=== PATIENT | male | born 1965 | race Caucasian/White ===

== ENCOUNTER 2019-12-22 10:08 | Outpatient (CLI) | payer OTHER, SELFPAY ==
--- NOTE | 2019-12-22 10:22 | EST_ITS ---
Patient Info Name: Ras Reddy Age: 54 years : 1965 Gender: Male Ht: 71 in Wt: 179 lbs BSA: 2.02 m2 Exam Date: 12/22/2019 10:36 AM Exam Location: [facility] Pulmonary Patient Status: Outpatient Admit Date: 12/22/2019 Staff Ordering Physician: Phi Levine DO Photo Cartographer: Anali Donahue RCS Attending Provider: PHI LEVINE Referring Physician: Oliver SCHWARZ; Exercise Technologist: Arpan Stratton RDCS, RT Exercise Physician: Phi Levine DO Exam Type: CA stress echo Study Info Indications I25.9 - Chronic ischemic heart disease, unspecified Treadmill exercise stress echocardiogram is performed. Summary 1. 1. Negative Berhane exercise stress test for ischemic ST changes by ECG criteria. 2. 2. Good functional capacity, achieving 10 METs of workload. 3. 3. Appropriate HR response to exercise. 4. 4. Appropriate HR recovery at 1 minute post exercise. 5. 5. Negative stress echocardiogram for ischemia by wall motion analysis. 6. 6. Baseline inferior/posterior wall hypokinesis. 7. 7. Patient informed of the above results. Stress Echo Findings Left Ventricle Improved in contractility of LV with systole. Improved in LV endocardial thickening in all wall segments including inferior and posterior wall with systole. Left Ventricle Entire posterior wall is severely hypokinetic. Inferior wall is mildly hypokinetic. EF 40%. Protocol: Berhane Stress ECG Details Stage: REST Duration (min): 2 min : 1 sec Speed (mph): 0.0 Grade (%): 0 HR (bpm): 73 SBP (mmHg): 131 DBP (mmHg): 78 METS: --- Stage: REST Duration (min): 14 min : 45 sec Speed (mph): 0.0 Grade (%): 0 HR (bpm): 76 SBP (mmHg): 131 DBP (mmHg): 78 METS: --- Stage: STAGE 1 Duration (min): 1 min : 0 sec Speed (mph): 1.7 Grade (%): 10 HR (bpm): 97 SBP (mmHg): 131 DBP (mmHg): 78 METS: --- Stage: STAGE 1 Duration (min): 2 min : 0 sec Speed (mph): 1.7 Grade (%): 10 HR (bpm): 101 SBP (mmHg): 131 DBP (mmHg): 78 METS: --- Stage: STAGE 1 Duration (min): 3 min : 0 sec Speed (mph): 1.7 Grade (%): 10 HR (bpm): 111 SBP (mmHg): 150 DBP (mmHg): 85 METS: --- Stage: STAGE 2 Duration (min): 1 min : 0 sec Speed (mph): 2.5 Grade (%): 12 HR (bpm): 119 SBP (mmHg): 150 DBP (mmHg): 85 METS: --- Stage: STAGE 2 Duration (min): 2 min : 0 sec Speed (mph): 2.5 Grade (%): 12 HR (bpm): 124 SBP (mmHg): 175 DBP (mmHg): 87 METS: --- Stage: STAGE 2 Duration (min): 3 min : 0 sec Speed (mph): 2.5 Grade (%): 12 HR (bpm): 122 SBP (mmHg): 175 DBP (mmHg): 87 METS: --- Stage: STAGE 3 Duration (min): 1 min : 0 sec Speed (mph): 3.4 Grade (%): 14 HR (bpm): 132 SBP (mmHg): 185 DBP (mmHg): 99 METS: --- Stage: STAGE 3 Duration (min): 2 min : 0 sec Speed (mph): 3.4 Grade (%): 14 HR (bpm): 131 SBP (mmHg): 185 DBP (mmHg): 99 METS: ---
== END 2019-12-22 10:09 | disposition home or self-care (01) ==
LOC: ANHCARD 10:10
PROVIDERS: PCP Family Medicine; Visit Provider Internal Medicine Cardiovascular Disease
DX: I25.10 Atherosclerotic heart disease of native coronary artery without angina pectoris (principal)
CPT/HCPCS: 93351

== ENCOUNTER 2022-01-14 10:26 | Outpatient (CLI) | payer OTHER, SELFPAY ==
--- NOTE | ~2022-01-14 | XR_ITS ---
EXAMINATION: XR hip BI wo pelvis INDICATION: Bilateral hip pain TECHNIQUE: Two views of each hip are obtained. COMPARISON: None available FINDINGS: Bone alignment is normal. There is no fracture. There is mild osteoarthritis of the hips. T he soft tissues are unremarkable. IMPRESSION: 1. Mild osteoarthritis of the hips. Reviewed, dictated and finalized at location F. OR ANALYST PROGRAMMER
--- NOTE | ~2022-01-14 | XR_ITS ---
EXAMINATION: XR lumbar spine 2-3V DATE: 01/14/2022 10:57 INDICATION: Bilateral hip pain TECHNIQUE: Anteroposterior and lateral views of the lumbar spine, and cone-down lateral view of the l umbosacral junction were obtained. COMPARISON: None. FINDINGS: There is no fracture, dislocation, or subluxation. The vertebral body heights and intervert ebral disc spaces are maintained. Small degenerative osteophytes project from the anterior endplates of multiple vertebral bodies. There is mild facet osteoarthritis of the lower lumbar spine. Calcified atherosclerosis is noted. IMPRESSION: 1. Mild lumbar spondylosis. Reviewed, dictated and finalized at location F. ATOR COATING FURNACE IMPRESSION: 1. Mild lumbar spondylosis.
== END 2022-01-14 10:27 | disposition home or self-care (01) ==
LOC: CHSIMG 10:29
PROVIDERS: PCP Family Medicine; Visit Provider Family Medicine
DX: R09.89 Other specified symptoms and signs involving the circulatory and respiratory systems (principal); M25.551 Pain in right hip; M54.16 Radiculopathy, lumbar region; M25.552 Pain in left hip
CPT/HCPCS: 72100; 73521

== ENCOUNTER 2022-01-16 12:18 | Outpatient (CLI) | payer OTHER, SELFPAY ==
--- NOTE | ~2022-01-16 | US_ITS ---
EXAMINATION: US arterial ankle brachial ind EXAM DATE: 01/16/2022 12:54 INDICATION: Absent pedal pulses. TECHNIQUE: Segmental pressures and plethysmographic and Doppler waveforms of the brachial and lower e xtremity arteries were obtained. There is no prior study for comparison. FINDINGS: Right and left brachial artery pressures of 107 mm Hg and 118 mm Hg, respectively, are concordant (no rmal difference <= 30 mmHg). RIGHT LEG: The ankle-brachial index (MELVA) is 0.71 (normal >= 0.9-1). The great toe pressure of 65 mmHg. The lower extremity ratios, segmental pressure gradients as follows; Dorsalis pedis: 0.53 (62 mmHg). Posterior tibial: 0.71 (84 mmHg). (Normal gradients <= 20-30 mmHg between adjacent levels on the same leg or the same levels on the two legs). Arterial waveforms are monophasic. LEFT LEG: The ankle-brachial index (MELVA) is 0.80 (normal >= 0.9-1). The great toe pressure of 53 mmHg. The lower extremity ratios, segmental pressure gradients as follows; Dorsalis pedis: 0.42 (50 mmHg). Posterior tibial: 0.80 (94 mmHg). (Normal gradients <= 20-30 mmHg between adjacent levels on the same leg or the same levels on the two legs). Arterial waveforms are monophasic PT, absent DP. A duplex D oppler image of the left dorsalis pedis waveform was obtainable with parvus tardus appearance. IMPRESSION: 1. Right ankle-brachial index 0.71, mild to moderately decreased. 2. Left ankle-brachial index 0.80, mildly decreased. 3. Absent left dorsalis pedis waveform. Reviewed, dictated and finalized at location G. SERVICE MANAGER
== END 2022-01-16 12:19 | disposition home or self-care (01) ==
LOC: CHSIMG 12:19
PROVIDERS: PCP Family Medicine; Visit Provider Family Medicine
DX: R09.89 Other specified symptoms and signs involving the circulatory and respiratory systems (principal)
CPT/HCPCS: 93922

== ENCOUNTER 2022-01-21 08:03 | Outpatient (RCR) | payer OTHER, SELFPAY ==
--- NOTE | 2022-01-21 08:57 | PTOPEVAL ---
Thank you for referring Ras Reddy [facility] to [facility] The patient is scheduled to be seen for therapy? ____x/week for ___ weeks. Please review, sign, date and return this plan of care ANGELA. I agree with and certify that the following plan of care is medically necessary. Referring Physician Date Admitting Provider: Attending Provider: Sky Mccain MD Referring Provider: *PT Outpatient Evaluation Start: 01/21/22 07:51 Freq: Status: Active Protocol: Document 01/21/22 07:52 ACR (Rec: 01/21/22 08:56 ACR [id number]) Therapy Assessment Status Assessment Status Assessment Status Evaluation Evaluation Information Problem Diagnosis low back pain with radiculopathy Subjective Information Patient states that he started Query Text:As Reported By Patient/ to have leg pain where his Family legs feel really tight. He states that he got an MELVA which showed mild to moderate blockage. The patient states that he has some back pain, but his R hip is the most pain where it can radiate down the front of the leg into the ankle. He states that he is having significant pain where he is unable to walk more than 5 minutes before resting. Patient states that standing does not bother him, but the steps cause pain. He states getting in and out of the car and squats do not bother him. He states that he only has the most pain when he is walking. He states that he is unable to work at this time due to his pain. The patient's goal is to get back to normal. 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
--- NOTE | 2022-02-01 11:08 | PTOPEVAL ---
Thank you for referring Ras Reddy II to [facility].? The patient is scheduled to be seen for therapy? ____x/week for ___ weeks. Please review, sign, date and return this plan of care ANGELA. I agree with and certify that the following plan of care is medically necessary. Referring Physician Date Admitting Provider: Attending Provider: Sky Mccain MD Referring Provider: *PT Outpatient Evaluation Start: 01/21/22 07:51 Freq: Status: Active Protocol: Document 02/01/22 09:00 [facility] (Rec: 02/01/22 11:07 [facility] [id number]) Therapy Assessment Status Assessment Status Assessment Status Progress Evaluation Information Problem Diagnosis low back pain with radiculopathy Subjective Information patient reports he recently Query Text:As Reported By Patient/ found out that he has poor Family bloof flow in the leg/arterial blockage and reports he is farily certain this is why he waslks with a limp and has bilateral hip pain. he reports he thinks it would be best to hold off of therapy until after he follows up with MD about what to do about his blood flow issues. he reports no radicular symptoms today. Pain Assessment Timing of Pain Assessment Timing of Pain Assessment Assessment Pain Scale Pain Scale Used Numeric (1 - 10) Self Report Pain Assessment Right Hip(s) Reported Pain Level 1 Pain Score Pain Score 1: Self Report Interventions Used Interventions Used By Clinicians Activity or ADL's,Electrical Stimulation,Exercise,Heat Lower Extremity Muscle Strength Testing General Lower Extremity Strength Gross Lower Extremity Strength 5/5 bilateral hip flex 4/5 bilateral hip abd 4/5 bilateral hip ext 5/5 bilateral knee ext/flex 5/5 bilateral ankle DF Muscle Length Testing Muscle Length Testing Left Hamstring Length 20 Query Text:(90 - 90 Position) Right Hamstring Length 20 Query Text:(90 - 90 Position) Palpation Assessment Palpation Palpation atient did not take blood pressure meds this morning. he presnts with 162/85 mmhg, 65 BPM, and 98% spo2. he reports no pain with lumbar or sacral spine PA glides. he does
== END 2022-02-01 23:59 | disposition home or self-care (01) ==
LOC: CHSPT 08:03
PROVIDERS: PCP Family Medicine; Visit Provider Family Medicine
DX: M54.50 Low back pain, unspecified (principal); M54.10 Radiculopathy, site unspecified
CPT/HCPCS: 97014; 97110; 97161; 97530; G0283

== ENCOUNTER 2022-04-30 11:36 | Emergency (ER) | payer OTHER, SELFPAY ==
[2022-04-30 11:40] VITALS: BP 126/77; PULSE 72; RESP 16; TEMP 36.3; O2SAT 100
--- NOTE | 2022-04-30 12:36 | ED.WOUNDLAC ---
HPI - Wound/Laceration General Chief Complaint: Skin/Abscess/Foreign Body Stated Complaint: cut finger oon Left hand Time Seen by Provider: 04/30/22 11:38 Source: patient and RN notes reviewed Mode of arrival: ambulatory Limitations: no limitations History of Present Illness HPI narrative: left index finger laceration 1.8 cm lateral Onset (ago): day(s) (1) Location: other (left hand) Extremity Location: Left: hand Place: home Patient tetanus UTD: Yes Context: accidental Associated symptoms: none Treatments prior to arrival: bandage Related Data Home Medications Medication Instructions Recorded Confirmed amlodipine 10 mg tablet 10 mg PO DAILY 11/15/19 04/30/22 aspirin 81 mg tablet,delayed 81 mg PO DAILY 11/15/19 04/30/22 release (Adult Low Dose Aspirin) esomeprazole magnesium 20 mg 20 mg PO DAILY 11/15/19 04/30/22 capsule,delayed release (Nexium) lisinopril 20 1 tablet PO DAILY 11/15/19 04/30/22 mg-hydrochlorothiazide 12.5 mg tablet metoprolol tartrate 25 mg tablet 25 mg PO BID 11/15/19 04/30/22 nitroglycerin 0.4 mg sublingual 0.4 mg sublingual Q5M PRN Chest 11/15/19 04/30/22 tablet Pain Allergies Allergy/AdvReac Type Severity Reaction Status Date / Time iodine Allergy Mild Hypertensio Verified 04/30/22 13:15 n Review of Systems Review of Systems: All systems reviewed & are unremarkable except as noted in HPI and below Constitutional: Constitutional: Reports no additional constitutional complaints Eyes: Eyes: Reports no additional eye complaints ENT: Reports system reviewed and no additional complaints, except as documented Cardiovascular: Cardiovascular: Reports no additional cardiovascular complaints Respiratory: Respiratory: Reports no additional respiratory complaints Gastrointestinal: Gastrointestinal: Reports no additional gastrointestinal complaints Musculoskeletal: Musculoskeletal: Reports no additional musculoskeletal complaints Integumentary/Breasts: Skin/Breast: Reports system reviewed and no additional complaints, except as docu Neurologic: Reports system reviewed and no additional complaints, except as documented Psychiatric: Psychiatric: Reports no additional psychiatric complaints Endocrine: Endocrine: Reports no additional endocrine complaints Hematologic/Lymphatic: Hematologic/Lymphatic: Reports no additional hematologic/lymphatic complaints Allergic/Immunologic: Allergic/Immunologic: Reports no additional allergic/immunologic complaints [facility] Past Medical History Medical History Arthritis Coronary artery disease Finger laceration History of right common carotid artery stent placement Hyperlipidemia Hypertension Myocardial infarct Family History Family History Mother Diabetes mellitus Grandparent Heart disease Father Diabetes mellitus Valvular heart disease Social History Social History Smoking status: Heavy tobacco smoker Alcohol intake: current Exam Const: General: healthy appearing and no acute distress Nutritional Appearance: well nourished Orientation/consciousness: patient oriented x3 Limitations: no limitations HENMT: Head: normal to inspection Ears: external ears normal, TM's normal bilaterally and EAC's normal General nose exam: Normal external nose present and Normal nares present Face and sinus: normal facial exam and sinuses nontender Mouth: Yes Normal oral and palatal mucosa present and Yes moist mucous membranes Teeth and gingiva: dentition normal Throat: posterior oropharynx normal Eyes: Conjunctivae: conjunctivae normal Pupils: Equal, round and reactive pupils present EOM: EOMs intact bilaterally Neck: Neck: normal visual inspection, no lymphadenopathy and no meningeal signs Chest: Chest palpation & inspection: normal inspection of the chest Resp
[2022-04-30 13:00] VITALS: BP 119/69; PULSE 64; RESP 16; O2SAT 100
== END 2022-04-30 13:00 | disposition home or self-care (01) ==
PROVIDERS: Emergency Provider Emergency Medicine; PCP Family Medicine
DX: S61.412A Laceration without foreign body of left hand, initial encounter (principal); W45.8XXA Other foreign body or object entering through skin, initial encounter
CPT/HCPCS: 99282

== ENCOUNTER 2022-10-15 08:23 | Emergency (ER) | payer OTHER, SELFPAY ==
[2022-10-15] VITALS (37 sets, daily range): BP systolic 98–138; BP diastolic 60–83; PULSE 54–72; RESP 14–29; TEMP 36.5–36.6; O2SAT 94–99
--- NOTE | 2022-10-15 08:43 | ED.GIBLEED ---
HPI - GI Bleed General Chief complaint: Abdominal Pain Stated complaint: BLOOD IN STOOL Time Seen by Provider: 10/15/22 08:43 History of Present Illness HPI Narrative: Pt presents with rectal bleeding this morning. Pt says he felt the urge to move his bowels and he passed pure blood. Pt denies abdominal pain or rectal pain or fever. Pt has not had any recent travel. Pt takes aspirin but is not on any other blood thinners. Pt has not ever had bleeding like this. Related Data Home Medications Medication Instructions Recorded Confirmed amlodipine 10 mg tablet 10 mg PO DAILY 11/15/19 10/15/22 aspirin 81 mg tablet,delayed 81 mg PO DAILY 11/15/19 10/15/22 release (Adult Low Dose Aspirin) esomeprazole magnesium 20 mg 20 mg PO DAILY 11/15/19 10/15/22 capsule,delayed release (Nexium) lisinopril 20 1 tablet PO DAILY 11/15/19 10/15/22 mg-hydrochlorothiazide 12.5 mg tablet metoprolol tartrate 25 mg tablet 25 mg PO BID 11/15/19 10/15/22 nitroglycerin 0.4 mg sublingual 0.4 mg sublingual Q5M PRN Chest 11/15/19 10/15/22 tablet Pain Allergies Allergy/AdvReac Type Severity Reaction Status Date / Time iodine Allergy Mild Hypertensio Verified 10/15/22 08:36 n Review of Systems Review of Systems: All systems reviewed & are unremarkable except as noted in HPI and below Gastrointestinal: Gastrointestinal: Reports as per HPI [facility] Past Medical History Medical History Arthritis Coronary artery disease Finger laceration History of right common carotid artery stent placement Hyperlipidemia Hypertension Myocardial infarct Family History Family History Mother Diabetes mellitus Grandparent Heart disease Father Diabetes mellitus Valvular heart disease Social History Social History (System 10/14/22 @ 15:51 by Courtney Medina) Smoking status: Light tobacco smoker Tobacco type: cigarettes Second hand tobacco smoke exposure: No Alcohol intake: never Substance use: never Lack of Transportation: No Lack of Food: Never True Current Housing: I Have Housing Concerned About Future Housing: No Difficulty Paying Gas/Electric Bills: No Difficulty Paying for Meds: No Currently Unemployed: YES Education: Trade/Vocational Certificate Difficulty w/ Childcare or Family Care: No Spiritual care concerns: No Exam Const: General: healthy appearing Nutritional Appearance: well nourished Orientation/consciousness: patient oriented x3 Limitations: no limitations Resp: Effort & Inspection: normal respiratory effort Auscultation: clear to auscultation bilaterally Cardio: Rate: regular rate Rhythm: regular rhythm GI: GI Palp: Yes Soft to palpation Auscultation: normal bowel sounds Rectal Exam: heme positive stool and No hemorrhoids (no bleeding external hemorrhoids noted) Back/Spine/Pelvis: Back: no CVA tenderness Skin: General skin exam: normal color Rashes: no rashes Neuro: General: patient oriented x3 Cranial nerves: Yes Nystagmus not present Speech: normal speech Extrem: General: normal to inspection and no clubbing, cyanosis or edema Psych: Mental Status: mental status grossly normal Affect: normal affect Attitude: cooperative Course Course Emergency Course: called [facility], no gi 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 discussed with dr streeter at [phone], will accept consult, calling hospitalist, dr conrad now. dr conrad agrees to accept pt [phone]. will call ambulance. Vital Signs Vital signs: Vital Signs Temperature 97.7 F 10/15/22 08:25 Pulse Rate 70
[2022-10-15 09:05] LABS: Basophils Absolute Auto 0.05 K/mm3 (0.00-0.10); Basophils Percent Auto 0.7 % (0.0-1.0); Eosinophils Absolute Auto 0.39 K/mm3 (0.02-0.50); Eosinophils Percent Auto 5.5 % (1.0-6.0); Hematocrit 42.7 % (40.0-54.0); Hemoglobin 15.3 g/dL (14.0-18.0); Immature Granulocyte Absolute 0.03 K/mm3 (0.00-0.00); Immature Granulocyte Percent A 0.4 % (0.0-0.0); Lymphocytes Absolute Auto 1.53 K/mm3 (1.10-4.50); Lymphocytes Percent Auto 21.7 % (18.0-42.0); Mean Corpuscular HGB Conc 35.8 g/dL (32.0-36.0); Mean Corpuscular Hemoglobin 31.5 pg (27.0-31.0); Mean Platelet Volume 9.5 fl (8.7-11.0); Monocytes Absolute Auto 0.73 K/mm3 (0.10-0.90); Monocytes Percent Auto 10.4 % (2.0-11.0); Neutrophils Absolute Auto 4.3 K/mm3 (1.7-7.2); Neutrophils Percent Auto 61.3 % (50.0-70.0); Platelet Count Result 316 K/mm3 (150-420); Red Blood Count 4.85 M/mm3 (4.70-6.10); Red Cell Distribution Width 12.3 % (11.6-14.4)
[2022-10-15 09:20] LABS: Partial Thromboplastin Time 29.1 SEC (23.90-30.70); Prothrombin Time 10.9 Seconds (9.50-12.10)
[2022-10-15 09:30] LABS: Alanine Aminotransferase 46 U/L (16-63); Albumin Level 3.7 g/dL (3.4-5.0); Alkaline Phosphatase 65 U/L (46-116); Anion Gap 12 mmol/L (8-16); Aspartate Amino Transferase 27 U/L (15-37); Bilirubin,Total 0.4 mg/dL (0.00-1.00); Blood Urea Nitrogen 14 mg/dL (7-18); Calcium 8.6 mg/dL (8.5-10.1); Carbon Dioxide 24 mmol/L (21-32); Chloride 103 mmol/L (98-108); Estimated CRCL calculation 64 ml/min; Estimated Glomerular Filt Rate > 60; Glucose 117 mg/dL (70-99); Osmolality Calculated 289 mOsm/kg (285-295); Sodium 139 mmol/L (136-145); Total Protein 6.8 g/dL (6.4-8.2)
--- NOTE | 2022-10-15 09:51 | PC.NURSE ---
PT UPDATED ON STATUS, NAD NOTED. VSS PER MONITOR. PT IS WATCHING TV AT THIS TIME WITHOUT DISTRESS. PT DENIES ANY NEEDS OR COMPLAINTS. PT CELL PHONE PROVIDED. WILL CONTINUE TO MONITOR.
--- NOTE | 2022-10-15 10:24 | PC.NURSE ---
SPOKE WITH DAUGHTER, SHE IS UPDATED, ERP HAS SPOKEN WITH PT AND HE IS AWARE OF PLAN OF CARE.
--- NOTE | 2022-10-15 10:46 | PC.NURSE ---
PT AND DAUGHTER UPDATED AT THIS TIME.
--- NOTE | 2022-10-15 11:43 | PC.NURSE ---
AWAITING COVID RESULTS FOR BED PLACEMENT AT [facility].
[2022-10-15 12:11] LABS: SARS-CoV-2 Ag Negative (Negative)
== END 2022-10-15 13:02 | disposition short-term general hospital (02) ==
PROVIDERS: Emergency Provider Emergency Medicine; PCP Family Medicine
DX: K92.2 Gastrointestinal hemorrhage, unspecified (principal)
CPT/HCPCS: 36415; 80053; 85025; 85610; 85730; 86850; 86900; 86901; 87426; 99285; C9803

== ENCOUNTER 2022-10-15 13:42 | Observation (INO) | payer OTHER, SELFPAY ==
--- NOTE | 2022-10-15 13:49 | ADMGEN ---
This patient, Ras Reddy II, was admitted to 3 Med Surg Room 325-02 at 1345. Patient/family oriented to hospital policies and general routines including ID bracelet, bed and alarms, visiting hours, pain management, procedures, bathroom and other care routines, personal items, smoking policy, room service/diet, and visiting hours. Information on how to activate the Rapid Response Team has been discussed. Patient/Family are encouraged to report perceived risks to care and to ask questions if they do not understand what they are told or what they should do.
[2022-10-15 13:55] VITALS: BMI 25.3
[2022-10-15 14:00] VITALS: BP 119/72; PULSE 57; RESP 16; TEMP 36.6; O2SAT 96
--- NOTE | 2022-10-15 14:00 | PM.IMHP ---
[facility] Past Medical History Medical History Arthritis Coronary artery disease Finger laceration History of right common carotid artery stent placement Hyperlipidemia Hypertension Myocardial infarct Family History Family History Mother Diabetes mellitus Grandparent Heart disease Father Diabetes mellitus Valvular heart disease Social History Social History Smoking status: Light tobacco smoker Tobacco type: cigarettes Second hand tobacco smoke exposure: No Alcohol intake: never Substance use: never Lack of Transportation: No Lack of Food: Never True Current Housing: I Have Housing Concerned About Future Housing: No Difficulty Paying Gas/Electric Bills: No Difficulty Paying for Meds: No Currently Unemployed: YES Education: Trade/Vocational Certificate Difficulty w/ Childcare or Family Care: No Spiritual care concerns: No Meds Home Medications and Allergies Home Medications Medication Instructions Recorded Confirmed Type amlodipine 10 mg tablet 10 mg PO DAILY 11/15/19 10/15/22 History aspirin 81 mg tablet,delayed 81 mg PO DAILY 11/15/19 10/15/22 History release (Adult Low Dose Aspirin) atorvastatin 40 mg tablet 40 mg PO DAILY #30 tabs 11/15/19 10/15/22 Rx esomeprazole magnesium 20 mg 20 mg PO DAILY 11/15/19 10/15/22 History capsule,delayed release (Nexium) lisinopril 20 1 tablet PO DAILY 11/15/19 10/15/22 History mg-hydrochlorothiazide 12.5 mg tablet metoprolol tartrate 25 mg tablet 25 mg PO BID 11/15/19 10/15/22 History nitroglycerin 0.4 mg sublingual 0.4 mg sublingual Q5M PRN Chest 11/15/19 10/15/22 History tablet Pain Allergies Allergy/AdvReac Type Severity Reaction Status Date / Time iodine Allergy Mild Hypertensio Verified 10/15/22 08:36 n
[2022-10-15 15:21] LABS: Hematocrit 41.6 % (42.0-52.0); Hemoglobin 14.9 g/dL (14.0-18.0)
--- NOTE | 2022-10-15 16:18 | WPDGICN ---
Assessment and Plan Assessment and plan (1) Acute lower gastrointestinal bleeding: Code(s): K92.2 - Gastrointestinal hemorrhage, unspecified Status: Acute Assessment and Plan: Hematochezia etiology to be determined. I suspect either diverticular bleed or perhaps hemorrhoidal bleed but this was quite a large amount of blood at for hemorrhoids. I discussed colonoscopy with him including the prep and the risks, such as bleeding, perforation, or rarely the need for surgery. Blood counts will be monitored and if necessary he will be transfused but at this point I doubt that that will be necessary. (2) Coronary artery disease: Code(s): I25.10 - Atherosclerotic heart disease of [place] coronary artery without angina pectoris Status: Acute Assessment and Plan: Because of his history of heart disease and stents he does take aspirin once daily. I told that we will need to hold this at least for couple of days until we are certain that his bleeding is resolved. GI Consult Note Consult date/time: 10/15/22 16:18 HPI: Ras Reddy II is a 57 year old male who this morning past large amount of blood per rectum. He thought he was having normal bowel movement but when he turned around he saw large amount of blood filling the toilet. The blood was relatively bright red. He then went to his local emergency room and was transferred here. He has had no abdominal pain. He denies being dizzy, lightheaded or otherwise symptomatic. He has not had a bowel movement since this morning. He suspects he has hemorrhoids because occasionally he would see a scant bit of blood on toilet paper after a bowel movement. He has never had a colonoscopy. There is no family history of colon cancer or other colon diseases. He has had a good appetite. He denies nausea, heartburn, indigestion, weight loss, anorexia, or any other change in bowel habits prior to this. He does take 1 aspirin tablet daily because he has had stents placed when he had a myocardial infarction about 13 years ago. Review of Systems Review of Systems: All systems reviewed & are unremarkable except as noted in HPI and below [facility] Past Medical History Medical History Arthritis Coronary artery disease Finger laceration History of right common carotid artery stent placement Hyperlipidemia Hypertension Myocardial infarct Family History Family History Mother Diabetes mellitus Grandparent Heart disease Father Diabetes mellitus Valvular heart disease Social History Social History Smoking status: Light tobacco smoker Tobacco type: cigarettes Second hand tobacco smoke exposure: No Alcohol intake: never Substance use: never Lack of Transportation: No Lack of Food: Never True Current Housing: I Have Housing Concerned About Future Housing: No Difficulty Paying Gas/Electric Bills: No Difficulty Paying for Meds: No Currently Unemployed: YES Education: Trade/Vocational Certificate Difficulty w/ Childcare or Family Care: No Spiritual care concerns: No Meds Home Medications and Allergies Home Medications Medication Instructions Recorded Confirmed Type amlodipine 10 mg tablet 10 mg PO DAILY 11/15/19 10/15/22 History aspirin 81 mg tablet,delayed 81 mg PO DAILY 11/15/19 10/15/22 History release (Adult Low Dose Aspirin) atorvastatin 40 mg tablet 40 mg PO DAILY #30 tabs 11/15/19 10/15/22 Rx esomeprazole magnesium 20 mg 20 mg PO DAILY 11/15/19 10/15/22 History capsule,delayed release (Nexium) lisinopril 20 1 tablet PO DAILY 11/15/19 10/15/22 History mg-hydrochlorothiazide 12.5 mg tablet metoprolol tartrate 25 mg tablet 25 mg PO BID 11/15/19 10/15/22 History nitroglycerin 0.4 mg sublingual 0.4 mg sublingual Q5M PRN Chest 11/15/19 10/15/22 History ta
[2022-10-15] MEDS: PEG (High)/E-LYTE SOLN 4,000 ML BTL 4000 ML PO (16:48)
--- NOTE | 2022-10-15 23:57 | P.PNCROSS_ITS ---
Event Note Event Note Event Note: The patient was admitted to the [facility] floor in transfer from [facility] [place] for further evaluation of rectal bleeding. He was seen in consultation by Dr. Streeter, GI, and bowel prep was started for colonoscopy tomorrow. I received a phone call from the patient's nurse at about 18:00 and at that time she reported that the patient had left against medical advice as he was not given ice chips and his toilet was not cleaned in a timely fashion. I did not see the patient during his stay and was not notified that he was intending to leave [facility] until after he left.
== END 2022-10-15 18:55 | disposition left against medical advice (07) ==
PROVIDERS: Physician Assistant; Admitting Provider Internal Medicine; PCP Family Medicine; Visit Provider Internal Medicine
DX: K92.2 Gastrointestinal hemorrhage, unspecified (principal); I25.10 Atherosclerotic heart disease of native coronary artery without angina pectoris; E78.5 Hyperlipidemia, unspecified; I10 Essential (primary) hypertension; I25.2 Old myocardial infarction; Z82.49 Family history of ischemic heart disease and other diseases of the circulatory system; F17.210 Nicotine dependence, cigarettes, uncomplicated; Z79.82 Long term (current) use of aspirin; Z79.899 Other long term (current) drug therapy; Z53.21 Procedure and treatment not carried out due to patient leaving prior to being seen by health care provider
CPT/HCPCS: 36415; 85014; 85018; A9270; G0378; G0379

== ENCOUNTER 2022-11-04 13:20 | Outpatient (CLI) | payer OTHER, SELFPAY ==
--- NOTE | 2022-11-04 14:16 | ECHO_ITS ---
Patient Info Name: Ras Reddy Age: 57 years : 1965 Gender: Male Ht: 71 in Wt: 180 lbs BSA: 2.03 m2 BP: 113 / 76 mmHg Technical Quality: Good Exam Date: 11/04/2022 2:15 PM Exam Location: [facility] Patient Status: Outpatient Admit Date: 11/04/2022 Staff Ordering Physician: Sky Mccain MD Staff Educator: Arpan Stratton RDCS, RT Attending Provider: Sky Mccain MD Referring Physician: Adán KIM; Exam Type: CA echo doppler color flow Study Info Indications I50.9 - Heart failure, unspecified Complete two-dimensional, color flow and Doppler transthoracic echocardiogram is performed. Strain analysis performed. Summary 1. Complete two-dimensional, color flow and Doppler transthoracic echocardiogram is performed. 2. Left ventricular chamber dimension is normal. 3. Proximal to mid posterior wall is severely hypokinetic to akinetic. 4. Left ventricular systolic function is preserved, estimated at 50-55%. 5. The left ventricular diastolic function is normal. 6. E/e' 7 is not elevated. 7. Global longitudinal strain is normal at -18.6%. 8. There is mild aortic valve sclerosis. 9. There is trace aortic valve regurgitation. 10. There is mild to moderate mitral valve regurgitation. 11. Dilated inferior vena cava with >50% collapse upon inspiration consistent with elevated right atrial pressure, 10 mmHg. Left Ventricle E/e' 7 is not elevated. Global longitudinal strain is normal at -18.6%. Proximal to mid posterior wall is severely hypokinetic to akinetic. Left ventricular chamber dimension is normal. Left ventricular systolic function is preserved, estimated at 50-55%. The left ventricular diastolic function is normal. Right Ventricle Right ventricular systolic function is normal and with normal TAPSE 2.0 cm. Right ventricular chamber dimension is normal. Left Atria Left atrial chamber dimension is normal. Right Atria Right atrial chamber dimension is normal. Aortic Valve The aortic valve is trileaflet. There is mild aortic valve sclerosis. There is no aortic valve stenosis. There is trace aortic valve regurgitation. Pulmonic Valve There is no pulmonic regurgitation. Mitral Valve There is no mitral valve stenosis. There is mild to moderate mitral valve regurgitation. Tricuspid Valve There is no tricuspid valve regurgitation. Pericardium/Pleural There is no pericardial effusion. Inferior Vena Cava Dilated inferior vena cava with >50% collapse upon inspiration consistent with elevated right atrial pressure, 10 mmHg. Aorta The aortic root size at the sinus of Valsalva is normal. Left Ventricular Outflow Tract Name Value Normal LVOT Doppler LVOT Peak Velocity 103 cm/s LVOT Peak Gradient 4 mmHg LVOT Mean Gradient 2 mmHg LVOT VTI 20 cm LVOT VTI/AV VTI Ratio 0.8 Mitral Valve Name Value Normal MV Doppler
== END 2022-11-04 13:21 | disposition home or self-care (01) ==
LOC: CHSIMG 13:22
PROVIDERS: PCP Family Medicine; Visit Provider Family Medicine
DX: I25.3 Aneurysm of heart (principal)
CPT/HCPCS: 93306

== ENCOUNTER 2022-11-27 01:17 | Day surgery (SDC) | payer OTHER, SELFPAY ==
[2022-11-05 12:10] VITALS: BMI 25.9
--- NOTE | 2022-11-26 13:02 | PM.HPGS ---
History of Present Illness History of Present Illness Consent: Risks, benefits, and alternatives have been discussed and questions answered. Patient agrees to proceed with procedure. Chief complaint: Rectal bleeding Narrative: Ras Reddy II is a 57 year old male Referred for colon cancer screening this is his 1st colonoscopy. He had recently been hospitalized because of rectal bleeding which subsided after 1 day. Review of Systems Review of Systems: All systems reviewed & are unremarkable except as noted in HPI and below PMFSH Past Medical History Medical History Arthritis Coronary artery disease Finger laceration History of right common carotid artery stent placement Hyperlipidemia Hypertension Myocardial infarct Family History Family History Mother Diabetes mellitus Grandparent Heart disease Father Diabetes mellitus Valvular heart disease Social History Social History Smoking packs per day: 1 Smoking cigarettes per day: 20.0 Years smoked: 40 Smoking pack-years: 40.00 Smoking status: Current some day smoker Tobacco type: cigarettes Second hand tobacco smoke exposure: No Alcohol intake: never Substance use: current Substance use type: marijuana Lack of Transportation: No Lack of Food: Never True Current Housing: I Have Housing Concerned About Future Housing: No Difficulty Paying Gas/Electric Bills: No Difficulty Paying for Meds: No Currently Unemployed: YES Education: Trade/Vocational Certificate Difficulty w/ Childcare or Family Care: No Living arrangements: with family Spiritual care concerns: No Meds Home Medications and Allergies Home Medications Medication Instructions Recorded Confirmed Type amlodipine 10 mg tablet 10 mg PO DAILY 11/15/19 11/21/22 History aspirin 81 mg tablet,delayed 81 mg PO DAILY 11/15/19 11/21/22 History release (Adult Low Dose Aspirin) atorvastatin 40 mg tablet 40 mg PO DAILY #30 tabs 11/15/19 11/21/22 Rx esomeprazole magnesium 20 mg 20 mg PO DAILY 11/15/19 11/21/22 History capsule,delayed release (Nexium) lisinopril 20 1 tablet PO DAILY 11/15/19 11/21/22 History mg-hydrochlorothiazide 12.5 mg tablet metoprolol tartrate 25 mg tablet 25 mg PO BID 11/15/19 11/21/22 History nitroglycerin 0.4 mg sublingual 0.4 mg sublingual Q5M PRN Chest 11/15/19 11/21/22 History tablet Pain Allergies Allergy/AdvReac Type Severity Reaction Status Date / Time iodine Allergy Mild Hypertensio Verified 11/05/22 12:09 n Exam Resp: Auscultation: clear to auscultation bilaterally Cardio: Rate: regular rate Rhythm: regular rhythm GI: GI Palp: Yes Soft to palpation and No Tenderness to palpation present (GI) Assessment and Plan Assessment and plan (1) Blood in stool: Code(s): K92.1 - Melena Status: Acute Assessment and Plan: Colonoscopy with possible biopsy or polypectomy or cautery or injection of substances.
[2022-11-27 07:40] VITALS: BP 109/69; PULSE 58; RESP 18; TEMP 36.2; O2SAT 98; BMI 25.9
[2022-11-27] MEDS: LACTATED RINGERS 1,000 ML 150 ML IV CONT (08:03)
--- NOTE | 2022-11-27 08:57 | WPDANESEPPF ---
Anes - Initial Pre Proc Eval Procedure: Operation Date: 11/27/22 09:00 Proposed Procedures p Colonoscopy - Marko Streeter MD Date/Time: 11/27/22 08:57 Surgeon: Marko Streeter MD Pre Op Diagnosis: Rectal bleeding Patient Data Age: 57 Gender: M Height: 1.78 m Weight: 82.2 kg Last Vital Signs Temp 97.1 F L 11/27/22 07:40 Pulse 58 L 11/27/22 07:40 Resp 18 11/27/22 07:40 BP 109/69 11/27/22 07:40 Pulse Ox 98 11/27/22 07:40 O2 Del Method Room Air 11/27/22 07:40 Allergies Allergy/AdvReac Type Severity Reaction Status Date / Time iodine Allergy Mild Hypertensio Verified 11/05/22 12:09 n Home Medications Medication Instructions Recorded Confirmed Type amlodipine 10 mg tablet 10 mg PO DAILY 11/15/19 11/21/22 History aspirin 81 mg tablet,delayed 81 mg PO DAILY 11/15/19 11/21/22 History release (Adult Low Dose Aspirin) atorvastatin 40 mg tablet 40 mg PO DAILY #30 tabs 11/15/19 11/21/22 Rx esomeprazole magnesium 20 mg 20 mg PO DAILY 11/15/19 11/21/22 History capsule,delayed release (Nexium) lisinopril 20 1 tablet PO DAILY 11/15/19 11/21/22 History mg-hydrochlorothiazide 12.5 mg tablet metoprolol tartrate 25 mg tablet 25 mg PO BID 11/15/19 11/21/22 History nitroglycerin 0.4 mg sublingual 0.4 mg sublingual Q5M PRN Chest 11/15/19 11/21/22 History tablet Pain Patient hx anesthesia problems: none Family hx anesthesia problems: none Results Review: All pre-operative results and documents have been reviewed as part of the pre-operative evaluation. [facility] Past Medical History Medical History Arthritis Coronary artery disease Finger laceration History of right common carotid artery stent placement Hyperlipidemia Hypertension Myocardial infarct Family History Family History Mother Diabetes mellitus Grandparent Heart disease Father Diabetes mellitus Valvular heart disease Social History Social History Smoking packs per day: 1 Smoking cigarettes per day: 20.0 Years smoked: 40 Smoking pack-years: 40.00 Smoking status: Current some day smoker Tobacco type: cigarettes Second hand tobacco smoke exposure: No Alcohol intake: never Substance use: current Substance use type: marijuana Lack of Transportation: No Lack of Food: Never True Current Housing: I Have Housing Concerned About Future Housing: No Difficulty Paying Gas/Electric Bills: No Difficulty Paying for Meds: No Currently Unemployed: YES Education: Trade/Vocational Certificate Difficulty w/ Childcare or Family Care: No Living arrangements: with family Spiritual care concerns: No Anes - Eval Final PreProcedure Day of Procedure 11/27/22 08:57 Patient weight: normal Heart: regular rate and rhythm Lungs: clear to auscultation Airway: Mallampati scale class II Neurological: alert and oriented Last oral intake: >/= 8 hours ASA classification: III Emergent: no Anesthetic plan: proceed Anesthesia type and monitoring: general GIVS and standard monitoring Results Review: All pre-operative results and documents have been reviewed as part of the pre-operative evaluation. Informed Consent: The patient's anesthetic plan and its attendant risks and benefits were discussed with the patient/family/POA. Questions were solicited and answers provided to the satisfaction of the patient/family/POA.
[2022-11-27 09:22] VITALS: BP 85/48; PULSE 71; RESP 22; O2SAT 95
[2022-11-27 09:32] VITALS: BP 95/61; PULSE 60; RESP 24; O2SAT 95
[2022-11-27 09:42] VITALS: BP 109/71; PULSE 63; RESP 21; O2SAT 99
== END 2022-11-27 09:47 | disposition home or self-care (01) ==
PROVIDERS: PCP Family Medicine; Visit Provider Internal Medicine Gastroenterology
PROC: 0DJD8ZZ Inspection of Lower Intestinal Tract, Via Natural or Artificial Opening Endoscopic (ICD-10-PCS; CPT 45378; principal; 2022-11-27 09:00)
DX: K62.5 Hemorrhage of anus and rectum (principal); K64.8 Other hemorrhoids; K62.1 Rectal polyp; K57.30 Diverticulosis of large intestine without perforation or abscess without bleeding; I25.10 Atherosclerotic heart disease of native coronary artery without angina pectoris; I10 Essential (primary) hypertension; E78.5 Hyperlipidemia, unspecified; I25.2 Old myocardial infarction; Z79.82 Long term (current) use of aspirin; F17.210 Nicotine dependence, cigarettes, uncomplicated; F12.90 Cannabis use, unspecified, uncomplicated
CPT/HCPCS: 45380; 88305; J2704; J7120

== ENCOUNTER 2023-12-08 08:53 | Outpatient (CLI) | payer OTHER, SELFPAY ==
--- NOTE | ~2023-12-08 | CT_ITS ---
CT Scan of the Chest without Contrast: Clinical Indication: Pulmonary nodule Technique: Contiguous sections were acquired throughout the chest without intravenous contrast. Dose reduction technique was used on this scan by utilizing automated exposure control and iterative recon struction technique. The dose-length product (DLP) was 145.60 mGy-cm. COMPARISON: 10/13/2017 Findings: There is no evidence of any significant mediastinal, hilar or axillary lymphadenopathy. Extensive cor onary artery calcifications are present. There is no evidence of pleural or pericardial effusion. Calcified granulomas are present in the right middle lobe. There is a 7.5 mm noncalcified nodule in t he left lower lobe (axial image 80), unchanged. There is minimal chronic interstitial change or emphy sematous change in the upper lobes. Images through the upper abdomen reveal calcified splenic granulomas. Impression: Stable 7.5 mm noncalcified left lower lobe pulmonary nodule. Stability since 2016 is indicative of be nignity. Minimal chronic interstitial and/or emphysematous change in the upper lobes. Reviewed, dictated and finalized at [facility]. 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 Stability since is indicative of benignity. Minimal chronic interstitial and/or emphysematous change in the upper lobes.
== END 2023-12-08 08:54 | disposition home or self-care (01) ==
LOC: CHSIMG 08:54
PROVIDERS: PCP Family Medicine; Visit Provider Family Medicine
DX: R91.1 Solitary pulmonary nodule (principal); R91.8 Other nonspecific abnormal finding of lung field
CPT/HCPCS: 71250

== ENCOUNTER 2025-09-16 19:34 | Emergency (ER) | payer OTHER, SELFPAY ==
--- NOTE | ~2025-09-16 | CT_ITS ---
CT diagnostic chest wo con HISTORY:Rule out abscess or fluid collection. PUS FROM SUTURE SITE. COMPARISON: 1024. TECHNIQUE: Axial images of the chest were obtained without infusion of intravenous contrast. Dose optimization technique was utilized. FINDINGS: The examination demonstrates no pulmonary nodules, infiltrates and/or effusions. Subsegmental atelectasis are present at the lung bases. There are calcified granulomas within the right middle lobe. Cardiac size and mediastinal configuration are normal in appearance. No hilar or mediastinal lymphadenopathy is seen. The thoracic aorta is normal in caliber. Osseous structures are intact. IMPRESSION: Subsegmental atelectasis at the lung bases are new. There are calcified granuloma in the right middle lobe. All CT scans at this facility are performed using low dose modulation techniques as appropriate to perform exam including the following: automated exposure control; use of iterative reconstruction technique; adjustment of the mA and/or kV according to patient size (this includes techniques or standardized protocols for targeted exams where dose is matched to indication/reason for exam). Reviewed, dictated and finalized at location S. IMPRESSION: Subsegmental atelectasis at the lung bases are new. There are calcified granuloma in the right middle lobe. All CT scans at this facility are performed using low dose modulation techniqu es as appropriate to perform exam including the following: automated exposure c ontrol; use of iterative reconstruction technique; adjustment of the mA and/or kV according to patient size (this includes techniques or standardized protocol s for targeted exams where dose is matched to indication/reason for exam).
[2025-09-16 19:39] VITALS: BP 138/69; PULSE 81; RESP 20; TEMP 36.9; O2SAT 97
--- NOTE | 2025-09-16 19:46 | ED.GENADULT ---
HPI - General Adult General Chief complaint: Skin/Abscess/Foreign Body Stated complaint: WOUND CHECK Time Seen by Provider: 09/16/25 19:46 Source: patient Mode of arrival: ambulatory Limitations: no limitations History of Present Illness HPI narrative: 60 years old white male came to the ED with his from home by private car complaining of pus like discharge coming out of the chest surgical wound prior to arrival to the emergency room. Patient denies any fever, chills, nausea, vomiting, chest pain back pain or shortness of breath. Patient is status post CABG August 29 at [facility]. History of hypertension, hyperlipidemia, COPD, CABG. Related Data Home Medications ?Medication ?Instructions ?Recorded ?Confirmed ?Last Taken ?Type amlodipine 10 mg tablet 10 mg PO DAILY 11/15/19 11/21/22 Unknown History aspirin 81 mg tablet,delayed 81 mg PO DAILY 11/15/19 11/21/22 Unknown History release (Adult Low Dose Aspirin) esomeprazole magnesium 20 mg 20 mg PO DAILY 11/15/19 11/21/22 Unknown History capsule,delayed release (Nexium) lisinopril 20 1 tablet PO DAILY 11/15/19 11/21/22 Unknown History mg-hydrochlorothiazide 12.5 mg tablet metoprolol tartrate 25 mg tablet 25 mg PO BID 11/15/19 11/21/22 Unknown History nitroglycerin 0.4 mg sublingual 0.4 mg sublingual Q5M PRN Chest 11/15/19 11/21/22 Unknown History tablet Pain Allergies Allergy/AdvReac Type Severity Reaction Status Date / Time iodine Allergy Mild Hypertensio Verified 09/16/25 20:26 n Review of Systems Review of Systems: All systems reviewed & are unremarkable except as noted in HPI and below PMFSH Past Medical History Medical History Finger laceration Arthritis Myocardial infarct History of right common carotid artery stent placement Hypertension Hyperlipidemia Coronary artery disease Family History Family History Mother Diabetes mellitus Grandparent Heart disease Father Diabetes mellitus Valvular heart disease Social History Social History Smoking packs per day: 1 Smoking cigarettes per day: 20.0 Years smoked: 40 Smoking pack-years: 40.00 Smoking status: Current some day smoker Tobacco type: cigarettes Second hand tobacco smoke exposure: No Alcohol intake: never Substance use: current Substance use type: marijuana Lack of Transportation: No Lack of Food: Never True Current Housing: I Have Housing Concerned About Future Housing: No Difficulty Paying Gas/Electric Bills: No Difficulty Paying for Meds: No Currently Unemployed: YES Education: Trade/Vocational Certificate Difficulty w/ Childcare or Family Care: No Living arrangements: with family Spiritual care concerns: No Exam Narrative: GENERAL APPEARANCE: WELL-DEVELOPED, WELL-NOURISHED SKIN: NORMAL COLOR HEAD: NORMOCEPHALIC, NONTRAUMATIC EYES: CLEAR CONJUNCTIVA ENT: OROPHARYNX NORMAL, EARS NORMAL, NOSE NORMAL NECK: SUPPLE, NONTENDER CHEST AND RESPIRATORY: AIRWAY PATENT, NO RESPIRATORY DISTRESS, NO ACCESSORY MUSCLE USE, MIDLINE SURGICAL SCAR, ALONG THE STERNUM WITH HAS CM ERYTHEMA BILATERALLY, PURULENT DISCHARGE LEAKING OUT OF THE MIDDLE OF THE SCAR, MORE WITH SQUEEZING. NO LOCALIZED TENDERNESS HEART: REGULAR RATE/RHYTHM ABDOMEN: SOFT, NONTENDER, NO ORGANOMEGALY, QUIET BOWEL SOUNDS MUSCULOSKELETAL: NORMAL RANGE OF MOTION, NONTENDER BACK NEUROLOGIC: ALERT AND ORIENTED ?3, PSYCHOMETRIST IS NORMAL TESTED, NO GROSS MOTOR DEFICIT Course Consultations Consultation #1: DR GAY, THORACIC SURGEON AT [facility] WHO REQUESTED CT CHEST WITHOUT CONTRAST TO RULE OUT THE POSSIBILITY OF FLUID COLLECTION. Date: 09/16/25 Time: 20:28 Vital Signs Vital signs: Vital Signs Temperature 36.9 C 09/16/25 19:39 Pulse Rate 81 09/16/25 19:39 Respiratory Rate 20 09/16/25 19:39 Blood Pressure 138/69 09/16/25 19:39 Pulse Oximetry 97 09/16/25 19:39 Oxygen Delivery Room Air 09/16/25 19:39 Temperature 36.9 C 09/16/25 19:39 Pulse Rate 81 09/16/25 19:39 Respiratory Rate 20 09/16/25 19:39 Blood Pressure 138/69 09/16/25 19:39 Pulse Oximetry 97 09/16/25 19:39 Oxygen Delivery Room Air 09/16/25 19:39 Medical Decision Making MDM Narrative Medical decision making narrative: DIFFERENTIAL DIAGNOSIS INCLUDE POSTOP WOUND INFECTION BLOOD WORKUP TODAY INCLUDES CBC, CMP, BLOOD CULTURE, WOUND CULTURE SHOWED CT CHEST WITHOUT CONTRAST SHOWED Differential Diagnosis Differential Diagnosis: ABOVE Vital Signs Vital Signs: Vital Signs Temperature 36.9 C 09/16/25 19:39 Pulse Rate 81 09/16/25 19:39 Respiratory Rate 20 09/16/25 19:39 Blood Pressure 138/69 09/16/25 19:39 Pulse Oximetry 97 09/16/25 19:39 Oxygen Delivery Room Air 09/16/25 19:39 Temperature 36.9 C 09/16/25 19:39 Pulse Rate 81 09/16/25 19:39 Respiratory Rate 20 09/16/25 19:39 Blood Pressure 138/69 09/16/25 19:39 Pulse Oximetry 97 09/16/25 19:39 Oxygen Delivery Room Air 09/16/25 19:39 Lab Data 09/16/25 20:15 09/16/25 20:15 Labs: Lab Results 09/16/25 Range/Units 20:15 WBC 7.6 (4.8-10.8) K/mm3 RBC 3.59 L (4.70-6.10) M/mm3 Hgb 10.5 L (14.0-18.0) g/dL Hct 32.9 L (40.0-54.0) % MCV 91.6 (78.0-102.0) fL MCH 29.2 (27.0-31.0) pg MCHC 31.9 L (32-36) g/dL RDW 13.1 (11.6-14.4) % Plt Count 757 H (150-420) K/mm3 MPV 8.9 (8.7-11.0) fl Immature Gran % (Auto) 0.5 H (0.0-0.0) % Neut % (Auto) 68.3 (50.0-70.0) % Lymph % (Auto) 19.9 (18.0-42.0) % [place] % (Auto) 5.9 (2.0-11.0) % Eos % (Auto) 4.7 (1.0-6.0) % Baso % (Auto) 0.7 (0.0-1.0) % Lymph # (Auto) 1.52 (1.10-4.50) K/mm3 [place] # (Auto) 0.45 (0.10-0.90) K/mm3 Eos # (Auto) 0.36 (0.02-0.50) K/mm3 Baso # (Auto) 0.05 (0.00-0.10) K/mm3 Abs Immat Gran (auto) 0.04 H (0.00-0.00) K/mm3 Absolute Neuts (auto) 5.22 (1.70-7.20) K/mm3 Absolute Nucleated RBC 0.00 (0.00-0.00) K/mm3 Nucleated RBC % 0.0 (0-0.0) % % Immature Plt Fraction 1.0 (1.0-7.0) % Sodium 139 (137-145) mmol/L Potassium 4.0 (3.4-5.0) mmol/L Chloride 104 (98-107) mmol/L Carbon Dioxide 24 (22-30) mmol/L Anion Gap 11 (4-12) mmol/L BUN 16 (9-20) mg/dL Creatinine 1.15 (0.7-1.3) mg/dL Estim Creat Clear Calc 60 ml/min Estimated GFR > 60 (59 - ) Glucose 142 H (65-110) mg/dL Calculated Osmolality 291 (285-295) mOsm/kg Calcium 9.7 (8.4-10.2) mg/dL Total Bilirubin 0.4 (0.2-1.3) mg/dL AST 34 (17-59) U/L ALT 41 (6-50) U/L Alkaline Phosphatase 86 (38-126) U/L C-Reactive Protein 1.6 H (<1.0) mg/dL Total Protein 8.1 (6.3-8.2) g/dL Albumin 4.4 (3.5-5.1) g/dL Critical Care Time Critical Care Time Critical Care Time: No Discharge Plan Discharge Clinical Impression: Postoperative wound infection Patient Disposition: Home Condition: Stable Instructions: Antibiotic Form, Wound Infection (ED) Additional Instructions: RETURN IF SYMPTOMS ARE WORSENING , CALL YOUR THORACIC SURGEON FOR APPOINTMENT, TAKE TYLENOL NEEDED FOR ACHES AND PAIN, CONTINUE HOME MEDICATIONS. Patient Language: Italian Prescriptions: New cephalexin 500 mg capsule 500 mg PO Q6H 10 Days Qty: 40 0RF No Action esomeprazole magnesium [Nexium] 20 mg capsule,delayed release(DR/EC) 20 mg PO DAILY aspirin [Adult Low Dose Aspirin] 81 mg tablet,delayed release (DR/EC) 81 mg PO DAILY metoprolol tartrate 25 mg tablet 25 mg PO BID nitroglycerin 0.4 mg tablet, sublingual 0.4 mg SUBLINGUAL Q5M PRN (Reason: Chest Pain) lisinopril-hydrochlorothiazide 20-12.5 mg tablet 1 tablet PO DAILY atorvastatin 40 mg tablet 40 mg PO DAILY Qty: 30 0RF amlodipine 10 mg tablet 10 mg PO DAILY Follow-up/Referrals: Sky Mccain MD [Primary Care Provider, Internal Medicine]
[2025-09-16] MEDS: VANCOMYCIN 1,250 MG/NS 250 ML 1,250 MG/250 ML BAG 200 MG IVPB (20:05)
[2025-09-16 20:25] LABS: Hematocrit 32.9 % (40.0-54.0); Hemoglobin 10.5 g/dL (14.0-18.0); Immature Granulocyte Percent A 0.5 % (0.0-0.0); Immature Platelet Fraction Pct 1.0 % (1.0-7.0); Lymphocytes Absolute Auto 1.52 K/mm3 (1.10-4.50); Mean Corpuscular HGB Conc 31.9 g/dL (32-36); Mean Corpuscular Hemoglobin 29.2 pg (27.0-31.0); Mean Corpuscular Volume 91.6 fL (78.0-102.0); Nucleated Red Blood Cells Absolute Auto 0.00 K/mm3 (0.00-0.00); Nucleated Red Blood Cells Perc 0.0 % (0-0.0); Platelet Count Result 757 K/mm3 (150-420); Red Blood Count 3.59 M/mm3 (4.70-6.10); White Blood Count 7.6 K/mm3 (4.8-10.8)
[2025-09-16 20:43] LABS: Alanine Aminotransferase 41 U/L (6-50); Albumin Level 4.4 g/dL (3.5-5.1); Alkaline Phosphatase 86 U/L (38-126); Anion Gap 11 mmol/L (4-12); Aspartate Amino Transferase 34 U/L (17-59); Bilirubin,Total 0.4 mg/dL (0.2-1.3); Blood Urea Nitrogen 16 mg/dL (9-20); CRP 1.6 mg/dL (<1.0); Calcium 9.7 mg/dL (8.4-10.2); Carbon Dioxide 24 mmol/L (22-30); Chloride 104 mmol/L (98-107); Estimated CRCL calculation 60 ml/min; Estimated Glomerular Filt Rate > 60; Glucose 142 mg/dL (65-110); Osmolality Calculated 291 mOsm/kg (285-295); Potassium 4.0 mmol/L (3.4-5.0); Sodium 139 mmol/L (137-145); Total Protein 8.1 g/dL (6.3-8.2)
[2025-09-16 22:02] VITALS: BP 111/60; PULSE 81; RESP 20; TEMP 37.3; O2SAT 97
[2025-09-16] MEDS: CEPHALEXIN 500 MG CAPSULE PO (22:04)
--- NOTE | 2025-09-20 13:15 | PC.NURSE ---
PRELIMINARY BLOOD CULTURE RESULTS: NO GROWTH IN 24 HOURS. WAITING ON FINAL RESULTS.
--- NOTE | 2025-09-20 13:16 | PC.NURSE ---
FINAL AEROBIC BACTERIAL WOUND CULTURE RESULTS: MIXED SKIN HIRA. MD YARY STATES NO CHANGE IN CURRENT TREATMENT PLAN.
--- NOTE | 2025-09-21 12:45 | PC.NURSE ---
preliminary blood culture results x2: no growth in 48 hours
--- NOTE | 2025-09-24 16:49 | PC.NURSE ---
final blood cultures x2 reviewed. no growth in 5 days. no change in plan of care
== END 2025-09-16 22:25 | disposition home or self-care (01) ==
PROVIDERS: Emergency Provider Emergency Medicine; PCP Family Medicine
DX: T81.40XA Infection following a procedure, unspecified, initial encounter (principal); B99.8 Other infectious disease; E78.5 Hyperlipidemia, unspecified; I10 Essential (primary) hypertension; J44.9 Chronic obstructive pulmonary disease, unspecified; I25.2 Old myocardial infarction; I25.10 Atherosclerotic heart disease of native coronary artery without angina pectoris; F17.210 Nicotine dependence, cigarettes, uncomplicated; Z95.1 Presence of aortocoronary bypass graft
CPT/HCPCS: 36415; 71250; 80053; 85025; 85055; 86140; 87070; 96365; 99284; A9270; J3373

== ENCOUNTER 2025-10-11 08:27 | Outpatient (CLI) | payer OTHER, SELFPAY ==
--- NOTE | 2025-10-31 14:12 | WPDHOMESLEEP ---
Sleep Study - Home Unattended Date of Study: 10/11/25 Ordering Provider: Sky Mccain MD Interpreting Provider: María Hawley, DO Home Sleep Study Type: Watch PAT Height: 1.79 m Weight: 81.647 kg Body Mass Index: 25.4 Neck Circumference (inches): 18 [place]: 15 Reason for Sleep Study Excessive daytime sleepiness; Previously diagnosed with sleep apnea but is not currently on treatment. Sleep History The patient is a 60-year-old male that had a sleep study ordered by his primary care physician for evaluation of sleep apnea. The patient denies awakening from sleep short of breath. He frequently awakens at night with heartburn, belching or cough. He frequently snores and is frequently loud enough that others complain. He occasionally has trouble sleeping when he has a cold. He rarely wakes up gasping for air throughout the night. He frequently has breathing problems at night observed by himself or others. He occasionally sweats excessively at night. He denies having heart palpitations or irregular heartbeats during the night. He occasionally falls asleep during the day but never while driving. He denies cataplexy. He denies having trouble at school or work due to sleepiness. He occasionally feels unable to move while waking up or falling asleep. He rarely experiences vivid dreamlike scenes upon awakening or falling asleep. He denies feeling afraid of going to sleep. He rarely has nightmares. He occasionally remembers his dreams. He constantly has thoughts racing through his mind. He occasionally feels sad or depressed. He frequently has anxiety. He rarely has muscular tension. He occasionally notices parts of his body jerk. He denies kicking during the night. He rarely has crawling and aching feelings in his legs and rarely has leg pain during the night. He rarely grinds his teeth during sleep but never awakens with morning jaw pain. He is occasionally bothered by pain during the day but rarely awakened by pain during the night. He frequently wakes up feeling stiff in the morning. He frequently wakes up with sore or achy muscles. He rarely wakes up with pain in the neck, spine and other joints. He goes to bed at 10:30 p.m. every night. It takes him 1-2 hours to fall asleep. He wakes up twice throughout the night for unknown reasons and it takes him 1 hour to fall back asleep. He wakes up between 7-8 a.m. every morning. He typically gets 6-7 hours of sleep per night. He will stay in bed for 30 minutes after waking up in the morning. He currently lives with his . He denies consuming any caffeinated beverages within 2 hours of bedtime. He denies engaging in physical exercise before bedtime. He will watch television before falling asleep. He denies taking naps in the afternoon or the evening. He denies consuming any caffeinated beverages throughout the day. He is a former smoker. He denies alcohol recreational drug use. [facility] Past Medical History Medical History Finger laceration Arthritis Myocardial infarct History of right common carotid artery stent placement Hypertension Hyperlipidemia Coronary artery disease Family History Family History Mother Diabetes mellitus Grandparent Heart disease Father Diabetes mellitus Valvular heart disease Social History Social History Smoking packs per day: 1 Smoking cigarettes per day: 20.0 Years smoked: 40 Smoking pack-years: 40.00 Smoking status: Current some day smoker Tobacco type: cigarettes Second hand tobacco smoke exposure: No Alcohol intake: never Substance use: current Substance use type: marijuana Lack of Transportation: No Lack of Food: Never True Current Housing: I Have Housing Concerned About Future Housing: No Difficulty Paying Gas/Electric Bills: No Difficulty Paying for Meds: No Currently Unemployed: YES Education: Trade/Vocational Certificate Difficulty w/ Childcare or Family Care: No Living arrangements: with family Spiritual care concerns: No Medications Home Medications ?Medication ?Instructions ?Recorded ?Confirmed ?Type amlodipine 10 mg tablet 10 mg PO DAILY 11/15/19 11/21/22 History aspirin 81 mg tablet,delayed 81 mg PO DAILY 11/15/19 11/21/22 History release (Adult Low Dose Aspirin) atorvastatin 40 mg tablet 40 mg PO DAILY #30 tabs 11/15/19 11/21/22 Rx esomeprazole magnesium 20 mg 20 mg PO DAILY 11/15/19 11/21/22 History capsule,delayed release (Nexium) lisinopril 20 1 tablet PO DAILY 11/15/19 11/21/22 History mg-hydrochlorothiazide 12.5 mg tablet metoprolol tartrate 25 mg tablet 25 mg PO BID 11/15/19 11/21/22 History nitroglycerin 0.4 mg sublingual 0.4 mg sublingual Q5M PRN Chest 11/15/19 11/21/22 History tablet Pain cephalexin 500 mg capsule 500 mg PO Q6H 10 days #40 caps 09/16/25 Rx Sleep Procedure The sleep study was completed using ComvivaT a technically adequate device with seven channels: peripheral arterial tone, actigraphy, body position, snore, respiratory movement, pulse oximetry, sleep staging, and heart rate. Prior to using the device, the patient received verbal and written instructions for its application and was provided with the help desk phone number for additional telephonic instruction with 24-hour availability of qualified personnel to answer questions. The study was scored using CMS guidelines. Sleep Architecture The total recording time is 8 hrs, 39 min. The total sleep time is 7 hrs, 18 min. Sleep latency is 26 minutes. REM latency is 26 minutes. The patient had 9 episodes of waking. Sleep architecture shows 11.3% deep sleep, 68.8% light sleep, and (as % Total Sleep Time) showed NREM (Light 68.8%; Deep 11.3%), and a 19.9% stage REM. The patient spent 17.1% of total sleep time in the supine position. Sleep efficiency was 84.39. Respiratory Analysis The overall AHI (pAHI 4%:) is 29.6.The overall AHI (pAHI 3%:) is 42.2. The central AHI is 4.1. The AHI was 42.3 in NREM and 41.8 in REM sleep. The AHI was 58.6 in Supine and 38.6 in Non-supine sleep. Percent of Antonino Huizar respirations is 0.0. Oximetry Data The oxygen desaturation index (LINA 4%:) is 26.1. The mean saturation is 93%, and the lowest saturation is 85%. Time spent with saturation < 88% is 1.9 minutes. Snoring Profile Snoring average intensity is 44 dB. The patient snored above 45 decibels for 151.7 minutes, 34.6% of sleep time. Cardiac Profile The average pulse rate is 72 beats per minutes. The lowest pulse rate is 50 bpm. The highest pulse rate reported is 126 bpm. Atrial fibrillation was not detected. Premature beats occur 0.4 per minute. Assessment and Plan Assessment and Plan (1) APOLLO (obstructive sleep apnea): Code(s): G47.33 - Obstructive sleep apnea (adult) (pediatric) Status: Acute Assessment and Plan: The patient had an overall AHI of 29.6 with desaturation down to 85%. This is consistent with moderate sleep apnea. I recommend that the patient be prescribed AutoPAP 5-15 cm H2O, CPAP mask/filters/heated tubing and heated humidity. This should be used with all episodes of sleep.? Compliance should be reviewed within 31-90 days of starting therapy for usage greater than 4 hours per night greater than 70% of the nights. The patient should be asked about symptoms such as?excessive daytime sleepiness, quality of sleep, decreased nocturia, increased?mental functioning such as memory, mood, and concentration. Data The data obtained during this sleep study is adequate for interpretation. Certification This sleep study has been reviewed by a board certified sleep medicine physician.
[2025-10-31 14:13] VITALS: BMI 25.4
== END 2025-10-12 10:33 | disposition home or self-care (01) ==
PROVIDERS: PCP Family Medicine; Visit Provider Family Medicine
DX: G47.33 Obstructive sleep apnea (adult) (pediatric) (principal)
CPT/HCPCS: 95800